=== PATIENT | male | born 1965 | race Caucasian/White ===

== ENCOUNTER 2016-11-07 02:55 | Emergency (ER) | payer OTHER ==
[~2016-11-07] VITALS: Ht 185.4 cm; Wt 88.5 kg
--- NOTE | 2016-11-07 03:44 | ED GENERAL ADULT ---
History of Present Illness General Chief Complaint: General Adult Stated Complaint: AJ, CHILLS AND DIZZINESS, TICK BITE A FEW DAYS AGO Source: patient Exam Limitations: no limitations Vital Signs & Intake/Output Vital Signs & Intake/Output Vital Signs Date Time Temp Pulse Resp B/P B/P Pulse O2 O2 Flow FiO2 Mean Ox Delivery Rate 11/07 0414 101.7 11/07 0336 101.7 11/07 0304 100.7 72 18 128/73 98 Room Air Allergies Coded Allergies: NO KNOWN ALLERGIES (11/07/16) Reconcile Medications Doxycycline Hyclate 100 MG TABLET 1 TAB PO BID bronchitis Ibuprofen 800 MG TABLET 1 TAB PO TID PRN pain Triage Note: PT TO ED C/O FLU LIKE SYMPTOMS: HEADACHE, BODYACHES, CHILLS, +NAUSEA, TEMP 100.7. STATES WAS BITTEN BY A TICK A FEW DAYS AGO, ALSO SCRATCHED BY A DOG'S TOOTH YESTERDAY AND STATES WAS WORKING "IN A LOT OF MOLD YESTERDAY Triage Nurses Notes Reviewed? yes Onset: Gradual Duration: day(s): Timing: recent history Injury Environment: home Severity: moderate Modifying Factors: Improves With: rest. Associated Symptoms: body aches HPI: 50 yo gentleman presents with cough, body aches, chills, cough with thick sputum, also with dizziness, occasional nausea, but without vomiting, diarrhea, rash. He notes he also has sinus congestion. he notes also that he had a tick bite 2 days ago and took it off immediately < 24 hours on his body. "And it was a big fat tick." He notes no rashes. Past History Travel History Traveled to [place] past 21 day No Medical History Any Pertinent Medical History? see below for history Neurological: NONE EENT: NONE Cardiovascular: NONE Respiratory: NONE Gastrointestinal: NONE Hepatic: NONE Renal: NONE Musculoskeletal: NONE Psychiatric: NONE Endocrine: NONE Surgical History Surgical History: none Psychosocial History What is your primary language Lithuanian Tobacco Use: Current Daily Use Daily Tobacco Use Amount/Type: Smokeless tobacco daily ETOH Use: occasional use Illicit Drug Use: denies illicit drug use Family History Hx Contributory? No Review of Systems Review of Systems Constitutional: Reports: no symptoms. EENTM: Reports: no symptoms. Respiratory: Reports: no symptoms. Cardiovascular: Reports: no symptoms. GI: Reports: no symptoms. Genitourinary: Reports: no symptoms. Musculoskeletal: Reports: no symptoms. Skin: Reports: no symptoms. Neurological/Psychological: Reports: no symptoms. Hematologic/Endocrine: Reports: no symptoms. Immunologic/Allergic: Reports: no symptoms. All Other Systems: Reviewed and Negative Physical Exam Physical Exam General Appearance: well developed/nourished, mild distress Head: atraumatic, normal appearance Eyes: Bilateral: normal appearance. Ears, Nose, Throat: normal pharynx, normal ENT inspection Neck: normal inspection, supple, full range of motion Respiratory: chest non-tender, rhonchi Cardiovascular: regular rate/rhythm Gastrointestinal: normal bowel sounds, soft, non-tender Back: normal inspection, normal range of motion Extremities: normal inspection Neurologic/Psych: no motor/sensory deficits, awake, alert, oriented x 3 Skin: intact, normal color, warm/dry Core Measures ACS in differential dx? No CVA/TIA Diagnosis: No Severe Sepsis Present: No Septic Shock Present: No Progress Differential Diagnoses I considered the following diagnoses in my evaluation of the patient: bronchitis vs pneumonia vs other. Plan of Care: Orders Procedure Date/time Status TROPONIN LEVEL 11/07 346 Complete COMPREHENSIVE METABOLIC PANEL 11/07 346 Complete CBC WITHOUT DIFFERENTIAL 11/07 346 Complete EKG 11/07 346 Active RAPID VIRAL INFLUENZA A 11/07 309 Complete Laboratory Tests 11/07/16 0350: Anion Gap 12, Estimated GFR > 60, BUN/Creatinine Ratio 21.0, Glucose 97, Calcium 9.3, Total Bilirubin 0.5, AST 32, ALT 35, Alkaline Phosphatase 55, Troponin I < 0.01, Total Protein 6.9, Albumin 4.1, Globulin 2.8, Albumin/Globulin Ratio 1.5, CBC w Diff NO MAN DIFF REQ, RBC 4.59 L, MCV 90.4, MCH 30.9, RDW 13.1, MPV 8.2, Gran % 79.5 H, Lymphocytes % 9.9 L, Monocytes % 9.7 H, Eosinophils % 0.9, Basophils % 0 L, Absolute Granulocytes 4.9, Absolute Lymphocytes 0.6 L, Absolute Monocytes 0.6, Absolute Eosinophils 0.1, Absolute Basophils 0, PUBS MCHC 34.2 Microbiology 11/07 031 NASOPHARYN: Influenza Virus A & B Rapid Smear - COMP Diagnostic Imaging: Viewed by Me: Radiology Read. Discussed w/RAD: Radiology Read. CXR Impression: no acute abnormality, no infiltrates, normal size heart, normal mediastinum Initial ED EKG: normal axis, normal intervals, normal p-waves, normal QRS complex, normal sinus rhythm Comments: PATIENT: JOSEFINA WATT PRESENT AGE: 50 PATIENT ACCOUNT NO: [id number] : 65 LOCATION: [facility] [place] ORDERING PHYSICIAN: LÓPEZ CAAL MD SERVICE DATE: 11/07/16 EXAM TYPE: RAD - XRY-PORTABLE CHEST XRAY EXAMINATION: XR PORTABLE CHEST CLINICAL INFORMATION: Dyspnea, cough COMPARISON: None TECHNIQUE: Portable frontal view of the chest was obtained. FINDINGS: The left lung base is not fully included on the image. Included portions of the lungs appear clear without focal consolidation. No evidence of pneumothorax, significant pleural effusion, or pulmonary edema. The cardiomediastinal contour is unremarkable. No acute osseous findings are seen. IMPRESSION: No acute cardiopulmonary findings. DICTATED BY: BRENDA BAUM MD DATE/TIME DICTATED:11/07/16532 TARIFF INSPECTOR:SARAHI DATE/TIME TRANSCRIBED:11/07/16532 CONFIDENTIAL, DO NOT COPY WITHOUT APPROPRIATE AUTHORIZATION. <Electronically signed in Other Vendor System> SIGNED BY: BRENDA BAUM MD 11/07/16536 Departure Departure Disposition: HOME OR SELF CARE Condition: Stable Clinical Impression Primary Impression: Bronchitis Secondary Impressions: Fever Referrals: PATIENT HAS NO PRIMARY CARE DR (PCP/Family) Departure Forms: Customer Survey General Discharge Information Prescriptions: Current Visit Scripts Doxycycline Hyclate 1 TAB PO BID #20 TAB Ibuprofen 1 TAB PO TID PRN pain #30 TAB Comments well appearing in the ED with benign labs/cxr/ekg... i doubt tick borne illness given his time course and symptoms.... Will send pt home with doxy for outpatient bronchitis... encouraged close follow up. Critical Care Note Critical Care Note Critical Care Time: non-applicable
[2016-11-07 04:01] LABS: ABSOLUTE BASOPHIL COUNT 0 /CUMM (0.0-0.2); ABSOLUTE EOSINOPHIL COUNT 0.1 /CUMM (0.0-0.7); ABSOLUTE GRANULOCYTE CT 4.9 /CUMM (1.4-6.5); ABSOLUTE LYMPH COUNT 0.6 /CUMM (1.2-3.4); ABSOLUTE MONOCYTE COUNT 0.6 /CUMM (0.10-0.60); BASOPHIL % 0 % (0.0-2.0); EOSINOPHIL % 0.9 % (0-5); GRANULOCYTE % 79.5 % (42.2-75.2); HEMATOCRIT 41.5 % (42-52); MEAN CORPUSCULAR HGB 30.9 PG (27.0-31.0); MEAN CORPUSCULAR HGB CONC 34.2 G/DL (33.0-37.0); MEAN CORPUSCULAR VOLUME 90.4 FL (80.0-94.0); MEAN PLATELET VOLUME 8.2 FL (7.4-10.4); PLATELET COUNT 230 /CUMM (130-400); RBC DISTRIBUTION WIDTH 13.1 % (11.5-14.5); RED BLOOD CELL CT 4.59 /CUMM (4.70-6.10); WHITE BLOOD CELL COUNT 6.2 /CUMM (4.8-10.8)
--- NOTE | 2016-11-07 05:37 | RADIOLOGY REPORT ---
EXAMINATION: XR PORTABLE CHEST CLINICAL INFORMATION: Dyspnea, cough COMPARISON: None TECHNIQUE: Portable frontal view of the chest was obtained. FINDINGS: The left lung base is not fully included on the image. Included portions of the lungs appear clear without focal consolidation. No evidence of pneumothorax, significant pleural effusion, or pulmonary edema. The cardiomediastinal contour is unremarkable. No acute osseous findings are seen. IMPRESSION: No acute cardiopulmonary findings.
[2016-11-07] MEDS ORDERED: DOXYCYCLINE HY100 M4 PO (06:05)
[2016-11-07] MEDS ORDERED: IBUPROFEN800 M1 PO (06:05)
[2016-11-07 07:04] VITALS: BP 125/70
== END 2016-11-07 07:07 ==
LOC: ERH 02:55
PROVIDERS: Pediatrics
DX: J40 Bronchitis, not specified as acute or chronic (principal); R50.9 Fever, unspecified; Z72.0 Tobacco use; M79.1 Myalgia; R11.0 Nausea
CPT/HCPCS: 87804; 87804-59; 93005; 93010; 96361; 96374; J1885